=== PATIENT | male | born 1970 | race Caucasian/White ===

== ENCOUNTER 2018-01-08 06:49 | Emergency (ER) | payer BC ==
--- NOTE | 2018-01-08 07:24 | EDM.PDOC ---
ED HPI GENERAL MEDICAL PROBLEM - General Chief Complaint: Upper Extremity Injury/Pain Stated Complaint: LEFT ARM/SHOULDER INJURY Time Seen by Provider: 01/08/18 07:07 Source of Information: Reports: Patient History Limitations: Reports: No Limitations - History of Present Illness INITIAL COMMENTS - FREE TEXT/NARRATIVE: The patient states that he dropped his glasses behind his bed, and when he was reaching around to get them, around 06:00 this morning, he dislocated his left shoulder. The patient states that he has had countless dislocations of his left shoulder over the past 20 years. He underwent surgery about 7 years ago and states that he has had only one dislocation since, last summer, that he was able to self- reduced. He states that he attempted to self-reduced his shoulder this morning, without success. The patient has a history of DVT/PE, and is prescribed aqua's, but states that he has not refilled his prescription for the past month. The patient's PCP is [facility]. Left Shoulder Pain Score (Numeric/FACES): 8 - Related Data Allergies Allergy/AdvReac Type Severity Reaction Status Date / Time acetaminophen [From Percocet] Allergy Itching Verified 01/08/18 07:01 oxycodone HCl [From Percocet] Allergy Itching Verified 01/08/18 07:01 Home Meds: Home Meds Aspirin [Children's Aspirin] 2 tab PO DAILY 10/28/14 [History] Mycophenolate Mofetil [Cellcept] 750 mg PO BID 10/28/14 [History] Sirolimus [Rapamune] 2 mg PO DAILY 10/28/14 [History] Past Medical History Cardiovascular History: Reports: Blood Clots/VTE/DVT, Cardiomyopathy (viral, requiring heart transplant), High Cholesterol Respiratory History: Reports: PE (x 2) - Infectious Disease History Infectious Disease History: Reports: Other (See Below) Other Infectious Disease History: viral infection of heart in the past - Past Surgical History Cardiovascular Surgical History: Reports: Pacer (since removed), Other (See Below) (Heart transplant [address] [facility]) GI Surgical History: Reports: Cholecystectomy Musculoskeletal Surgical History: Reports: Arthroscopic Knee (left), Shoulder Surgery (left, arthroscopic), Other (See Below) (Right knee tendon repair) Social & Family History - Family History Family Medical History: Noncontributory - Tobacco Use Smoking Status *Q: Never Smoker - Alcohol Use Alcohol Use History: Yes Days Per Week of Alcohol Use: 0 Number of Drinks Per Day: 0 Total Drinks Per Week: 0 Alcohol Use Frequency: Socially - Recreational Drug Use Recreational Drug Use: No - Living Situation & Occupation Living situation: Reports: Single, Alone Occupation: Employed ([employer]) Review of Systems - Review of Systems Review Of Systems: ROS reveals no pertinent complaints other than HPI. ED EXAM, GENERAL - Physical Exam Exam: See Below Exam Limited By: No Limitations General Appearance: Alert, WD/WN, Mild Distress (Appears uncomfortable) Eye Exam: Bilateral Eye: Normal Inspection Ears: Normal External Exam, Hearing Grossly Normal Nose: Normal Inspection, No Blood Throat/Mouth: Normal Inspection, Normal Lips, Normal Voice, No Airway Compromise Head: Atraumatic, Normocephalic Neck: Normal Inspection, Full Range of Motion Respiratory/Chest: No Respiratory Distress, Lungs Clear, Normal Breath Sounds, No Accessory Muscle Use Cardiovascular: Normal Peripheral Pulses, Regular Rate, Rhythm, No Gallop, No JVD, No Murmur, No Rub Peripheral Pulses: 4+: Radial (L), Radial (R) GI/Abdominal: Normal Bowel Sounds, Soft, Non-Tender, No Organomegaly, No Distention, No Abnormal Bruit, No Mass (Male) Exam: Deferred Extremities: Normal Capillary Refill, Other (Anterior left shoulder fullness, consistent with anterior dislocation. Tender to palpation or any attempt at movement of the left humerus. Left upper extremity neurovascular status is intact.) Neurological: Alert, Oriented, Normal Cognition, No Motor/Sensory Deficits Psychiatric: Normal Affect Skin Exam: Warm, Dry, Intact, Normal Color, No Rash ED TRAUMA EXTREMITY PROCEDURES - Joint Reduction Site: Shoulder (L) Sedation: Other (Propofol per Anesthesia) Pre-Procedure NV Status: Normal Post-Procedure NV Status: Normal Technique: Traction/Counter Traction Number of Attempts: 1 Post-Reduction Imaging: Completely Reduced Joint Reduction Complications: No Course - Vital Signs Last Recorded V/S: Last Vital Signs Temp 36.8 C 01/08/18 07:36 Pulse 97 01/08/18 07:36 Resp 15 01/08/18 07:36 BP 123/87 01/08/18 07:36 Pulse Ox 100 01/08/18 07:36 - Orders/Labs/Meds Orders: Active Orders 24 hr Category Date Time Status DME for Discharge [COMM] Stat Oth 01/08/18 07:59 Ordered Meds: Medications Discontinued Medications Generic Name Dose Route Start Last Admin Trade Name Jeannie PRN Reason Stop Dose Admin Fentanyl Confirm 01/08/18 07:56 Sublimaze Administered 01/08/18 07:57 Dose 100 mcg .ROUTE .STK-MED ONE Hydromorphone HCl 0.5 mg 01/08/18 07:44 01/08/18 08:00 Dilaudid IVPUSH 01/08/18 07:45 Not Given ONETIME ONE Hydromorphone HCl Confirm 01/08/18 07:53 01/08/18 07:59 Dilaudid Administered 01/08/18 07:54 Not Given Dose 0.5 mg .ROUTE .STK-MED ONE Lactated Ringer's 1,000 mls @ 150 mls/hr 01/08/18 07:45 01/08/18 07:41 Ringers, Lactated IV 150 mls/hr ASDIRECTED HO Administration Midazolam HCl Confirm 01/08/18 07:56 Versed 1 Mg/Ml Administered 01/08/18 07:57 Dose 2 mg .ROUTE .STK-MED ONE Propofol Confirm 01/08/18 07:56 Diprivan 20 Ml Administered 01/08/18 07:57 Dose 200 mg .ROUTE .STK-MED ONE - Re-Assessments/Exams Free Text/Narrative Re-Assessment/Exam: 01/08/18 07:22 4-view radiographs of the left shoulder appear to demonstrate an anterior dislocation. No fracture identified. Evidence for prior surgery is present. Formal read per the Radiologist pending. The patient drove himself here, and states that he does not want pain medication. He states that his shoulder has been reduced without it in the past. The problem with that approach, however, is that without sedation, the muscles will be spasming and make reduction difficult. This would also increase the risk of a Hill-Sachs fracture. I've asked anesthesia to come to the ED. They could briefly sedate the patient for reduction, reducing the risk of injury. Once the patient is awake, he can then safely drove himself home. 01/08/18 07:57 The shoulder was reduced without difficulty using the traction/countertraction method, while under anesthesia. Post-reduction radiograph of the left shoulder appears to demonstrate complete reduction. No bony injury identified. Formal read per the Radiologist pending. A shoulder sling will be applied, and the patient will be discharged home. Departure - Departure Time of Disposition: 08:00 Disposition: Home, Self-Care 01 Condition: Good Clinical Impression: Recurrent dislocation, left shoulder - Discharge Information Instructions: Shoulder Dislocation Referrals: [facility] PA [Primary Care Provider] - Forms: ED Department Discharge Additional Instructions: You were seen in the emergency room after dislocating your left shoulder at home. Your shoulder was reduced in the ER under anesthesia. Continue to wear the shoulder sling for about 24 hours, then gradually increase the use of your left shoulder as tolerated. Take [id number] ibuprofen as needed for discomfort. If any other problems, please do not hesitate to return to the ER. - My Orders Last 24 Hours: My Active Orders 01/08/18 07:59 DME for Discharge [COMM] Stat - Assessment/Plan Last 24 Hours: My Active Orders 01/08/18 07:59 DME for Discharge [COMM] Stat
--- NOTE | 2018-01-08 07:36 | PCM.PREANE ---
Preanesthetic Assessment - Anesthesia/Transfusion/Family Hx Anesthesia History: Prior Anesthesia Without Reaction Family History of Anesthesia Reaction: No Transfusion History: Prior Transfusion Without Reaction - Review of Systems General: No Symptoms Pulmonary: No Symptoms Cardiovascular: No Symptoms Gastrointestinal: No Symptoms Neurological: No Symptoms, Numbness (left arm) Other: Reports: Easy Bleeding (ASA) - Physical Assessment NPO Status Date: 01/07/18 NPO Status Time: 00:00 Pulse: 97 O2 Sat by Pulse Oximetry: 100 Respiratory Rate: 15 Blood Pressure: 123/87 Temperature: 36.8 C Vital Signs: Last Vital Signs Temp 36.8 C 01/08/18 06:55 Pulse 104 H 01/08/18 06:55 Resp 17 01/08/18 06:55 BP 126/97 H 01/08/18 06:55 Pulse Ox 99 01/08/18 06:55 Height: 1.85 m Weight: 97.522 kg ASA Class: 3E Mental Status: Alert & Oriented x3 Airway Class: Mallampati = 1 Dentition: Reports: Normal Dentition Thyro-Mental Finger Breadths: 3 Mouth Opening Finger Breadths: 3 ROM/Head Extension: Full Lungs: Clear to Auscultation, Normal Respiratory Effort Cardiovascular: Regular Rate, Regular Rhythm, No Murmurs - Allergies Allergies/Adverse Reactions: Allergies Allergy/AdvReac Type Severity Reaction Status Date / Time acetaminophen [From Percocet] Allergy Itching Verified 01/08/18 07:01 oxycodone HCl [From Percocet] Allergy Itching Verified 01/08/18 07:01 - Blood Blood Available: No Product(s) Available: None - Anesthesia Plan Pre-Op Medication Ordered: None - Acknowledgements Anesthesia Type Planned: MAC Pt an Appropriate Candidate for the Planned Anesthesia: Yes Alternatives and Risks of Anesthesia Discussed w Pt/Guardian: Yes Pt/Guardian Understands and Agrees with Anesthesia Plan: Yes PreAnesthesia Questionnaire Cardiovascular History: Reports: Blood Clots/VTE/DVT, Heart Failure, High Cholesterol, [place] Other Cardiovascular History: HEART TRANSPLANT 2011 Respiratory History: Reports: PE Genitourinary History: Reports: Renal Disease Musculoskeletal History: Reports: Other (See Below) Other Musculoskeletal History: generalized muscle aches and pains----recent dose change in statins Hematologic History: Reports: Other (See Below) Other Hematologic History: BLOOD CLOTS Immunologic History: Reports: Solid Organ Transplant Other Immunologic History: pt is on immunosuppressant agents - Infectious Disease History Infectious Disease History: Reports: Other (See Below) Other Infectious Disease History: viral infection of heart in the past - Past Surgical History GI Surgical History: Reports: Cholecystectomy Musculoskeletal Surgical History: Reports: Arthroscopic Knee - SUBSTANCE USE Smoking Status *Q: Unknown Ever Smoked Days Per Week of Alcohol Use: 0 Number of Drinks Per Day: 0 Total Drinks Per Week: 0 Recreational Drug Use History: No - HOME MEDS Home Medications: Home Meds Aspirin [Children's Aspirin] 2 tab PO DAILY 10/28/14 [History] Mycophenolate Mofetil [Cellcept] 750 mg PO BID 10/28/14 [History] Sirolimus [Rapamune] 2 mg PO DAILY 10/28/14 [History]
[2018-01-08 07:37] VITALS: BP 123/87
[2018-01-08] MEDS ORDERED: HYDROmorphone 0.5 MG/0.5 ML SYRINGE IVPUSH ONE (07:44)
[2018-01-08] MEDS ORDERED: Lactated Ringers 1,000 ML IV SCH (07:45)
[2018-01-08] MEDS ORDERED: HYDROmorphone 0.5 MG/0.5 ML SYRINGE ONE (07:53)
[2018-01-08] MEDS ORDERED: Midazolam 1 MG/ML 2 ML SDV ONE (07:56)
[2018-01-08] MEDS ORDERED: Propofol 200 MG/20 ML SDV ONE (07:56)
[2018-01-08] MEDS ORDERED: fentaNYL 100 MCG/2 ML SDV ONE (07:56)
--- NOTE | 2018-01-08 08:46 | CR ---
Left shoulder: Three views of the left shoulder were obtained. Comparison: Prior left shoulder study of 10/16/10. Anterior subcoracoid dislocation is seen. Lucencies are seen within the glenoid rim compatible with prior surgery. No acute fracture or other abnormality is seen. Impression: 1. Shoulder dislocation. Evidence of prior glenoid surgery. Diagnostic code #3
--- NOTE | 2018-01-08 08:48 | CR ---
Left shoulder: Single AP view of the left shoulder was obtained. Comparison: Prior shoulder study performed earlier on the same day (6:56 AM). Previous dislocation has been reduced. Glenohumeral alignment appears within normal limits. Lucencies compatible with previous surgery again noted within the glenoid rim. No additional abnormality is seen. Impression: 1. Previous dislocation has been reduced. Diagnostic code #2
== END 2018-01-08 08:53 | disposition home or self-care (01) ==
LOC: JD.ED 06:49
DX: M24.412 Recurrent dislocation, left shoulder (principal); Z88.8 Allergy status to other drugs, medicaments and biological substances; Z79.899 Other long term (current) drug therapy; Z79.82 Long term (current) use of aspirin
CPT/HCPCS: 23655; 73020; 73030; 96360; 99152; 99284; J2250; J3010; J7120; J2704

== ENCOUNTER 2018-03-05 14:18 | Emergency (ER) | payer BC ==
[2018-03-05 14:25] VITALS: BP 148/102
[2018-03-05] MEDS ORDERED: fentaNYL 100 MCG/2 ML SDV IVPUSH ONE ×2 (14:34→14:59)
[2018-03-05] MEDS ORDERED: Sodium Chloride 0.9% 10 ML Syringe FLUSH PRN (14:34)
[2018-03-05] MEDS ORDERED: Midazolam 1 MG/ML 2 ML SDV IVPUSH ONE ×2 (14:34→14:59)
--- NOTE | 2018-03-05 14:39 | EDM.PDOC ---
ED HPI GENERAL MEDICAL PROBLEM - General Chief Complaint: Upper Extremity Injury/Pain Stated Complaint: LEFT SHOULDER INJURY Time Seen by Provider: 03/05/18 14:27 Source of Information: Reports: Patient History Limitations: Reports: No Limitations - History of Present Illness INITIAL COMMENTS - FREE TEXT/NARRATIVE: The patient presents with left shoulder dislocation. This happened just prior to arrival. He was pull starting a generator. He has a history of shoulder dislocation. He has had surgery. He denies any other injures. Onset: Sudden Duration: Minutes: Location: Reports: Upper Extremity, Left (Shoulder) Quality: Reports: Sharp Severity: Severe Improves with: Reports: None Worsens with: Reports: None Associated Symptoms: Reports: No Other Symptoms Left Shoulder Pain Score (Numeric/FACES): 6 - Related Data Allergies Allergy/AdvReac Type Severity Reaction Status Date / Time acetaminophen [From Percocet] Allergy Itching Verified 01/08/18 07:01 oxycodone HCl [From Percocet] Allergy Itching Verified 01/08/18 07:01 Home Meds: Home Meds Aspirin [Children's Aspirin] 2 tab PO DAILY 10/28/14 [History] Mycophenolate Mofetil [Cellcept] 750 mg PO BID 10/28/14 [History] Sirolimus [Rapamune] 2 mg PO DAILY 10/28/14 [History] Apixaban [Eliquis] 5 mg PO BID 03/05/18 [History] Chlorthalidone 25 mg PO DAILY 03/05/18 [History] Past Medical History Cardiovascular History: Reports: Blood Clots/VTE/DVT, Cardiomyopathy (viral, requiring heart transplant), High Cholesterol Other Cardiovascular History: HEART TRANSPLANT 2012 Respiratory History: Reports: PE (x 2) Genitourinary History: Reports: Renal Disease Musculoskeletal History: Reports: Other (See Below) Other Musculoskeletal History: generalized muscle aches and pains----recent dose change in statins Hematologic History: Reports: Other (See Below) Other Hematologic History: BLOOD CLOTS Immunologic History: Reports: Solid Organ Transplant Other Immunologic History: pt is on immunosuppressant agents - Infectious Disease History Infectious Disease History: Reports: Other (See Below) Other Infectious Disease History: viral infection of heart in the past - Past Surgical History Cardiovascular Surgical History: Reports: Pacer (since removed), Other (See Below) (Heart transplant 2012 at [facility]) GI Surgical History: Reports: Cholecystectomy Musculoskeletal Surgical History: Reports: Arthroscopic Knee (left), Shoulder Surgery (left, arthroscopic), Other (See Below) (Right knee tendon repair) Social & Family History - Family History Family Medical History: Noncontributory - Tobacco Use Smoking Status *Q: Never Smoker - Alcohol Use Days Per Week of Alcohol Use: 0 Number of Drinks Per Day: 0 Total Drinks Per Week: 0 - Recreational Drug Use Recreational Drug Use: No Drug Use in Last 12 Months: No - Living Situation & Occupation Living situation: Reports: Single, Alone Occupation: Employed ([employer]) Review of Systems - Review of Systems Review Of Systems: See Below Constitutional: Reports: No Symptoms Eyes: Reports: No Symptoms Ears: Reports: No Symptoms Nose: Reports: No Symptoms Mouth/Throat: Reports: No Symptoms Respiratory: Reports: No Symptoms Cardiovascular: Reports: No Symptoms GI/Abdominal: Reports: No Symptoms Genitourinary: Reports: No Symptoms Musculoskeletal: Reports: Shoulder Pain ED EXAM, GENERAL - Physical Exam Exam: See Below Exam Limited By: No Limitations General Appearance: Alert, No Apparent Distress Ears: Normal External Exam Nose: Normal Inspection Head: Atraumatic, Normocephalic Neck: Normal Inspection Respiratory/Chest: No Respiratory Distress, Lungs Clear, Normal Breath Sounds Cardiovascular: Regular Rate, Rhythm, No Edema, No Murmur GI/Abdominal: Soft, Non-Tender, No Organomegaly, No Mass Extremities: Other (Deformity to the left shoulder with pain upon palpation. Good sensation and pulses distally. Good sensation to the lateral deltoid.) ED TRAUMA EXTREMITY PROCEDURES - Joint Reduction Site: Shoulder (L) Sedation: Conscious Sedation Pre-Procedure NV Status: Normal Post-Procedure NV Status: Normal Technique: Traction/Counter Traction Number of Attempts: 2 Post-Reduction Imaging: Completely Reduced, No Fracture Seen Joint Reduction Complications: No Course - Vital Signs Last Recorded V/S: Last Vital Signs Temp 98 F 03/05/18 15:51 Pulse 84 03/05/18 15:51 Resp 20 03/05/18 15:51 BP 148/102 H 03/05/18 15:51 Pulse Ox 100 03/05/18 15:51 - Orders/Labs/Meds Orders: Active Orders 24 hr Category Date Time Status Peripheral IV Care [RC] . DIRECTED Care 03/05/18 14:34 Active Shoulder 1V Lt [CR] Stat Exams 03/05/18 16:13 Taken Lactated Ringers [Ringers, Lactated] 1,000 ml Med 03/05/18 15:15 Active IV ASDIRECTED Sodium Chloride 0.9% [Saline Flush] Med 03/05/18 14:34 Active 10 ml FLUSH ASDIRECTED PRN Peripheral IV Insertion Adult [OM.PC] Routine Oth 03/05/18 14:34 Ordered Medication Orders Lactated Ringer's (Ringers, Lactated) 1,000 mls @ 100 mls/hr IV ASDIRECTED HO Last Admin: 03/05/18 15:15 Dose: 100 mls/hr Sodium Chloride (Saline Flush) 10 ml FLUSH ASDIRECTED PRN PRN Reason: Keep Vein Open Last Admin: 03/05/18 14:40 Dose: 10 ml Meds: Medications Generic Name Dose Route Start Last Admin Trade Name Freq PRN Reason Stop Dose Admin Lactated Ringer's 1,000 mls @ 100 mls/hr 03/05/18 15:15 03/05/18 15:15 Ringers, Lactated IV 100 mls/hr ASDIRECTED HO Administration Sodium Chloride 10 ml 03/05/18 14:34 03/05/18 14:40 Saline Flush FLUSH 10 ml ASDIRECTED PRN Administration Keep Vein Open Discontinued Medications Generic Name Dose Route Start Last Admin Trade Name Freq PRN Reason Stop Dose Admin Fentanyl 100 mcg 03/05/18 14:34 03/05/18 14:45 Sublimaze IVPUSH 03/05/18 14:35 100 mcg ONETIME ONE Administration Fentanyl 50 mcg 03/05/18 14:59 03/05/18 15:02 Sublimaze IVPUSH 03/05/18 15:00 50 mcg ONETIME ONE Administration Fentanyl Confirm 03/05/18 15:00 03/05/18 15:08 Sublimaze Administered 03/05/18 15:01 Not Given Dose 100 mcg .ROUTE .STK-MED ONE Lactated Ringer's Confirm 03/05/18 15:08 03/05/18 15:24 Ringers, Lactated Administered 03/05/18 15:09 Not Given Dose 1,000 mls @ as directed .ROUTE .STK-MED ONE Lidocaine HCl Confirm 03/05/18 15:29 Xylocaine-Mpf 1% Administered 03/05/18 15:30 Dose 4 mls @ as directed .ROUTE .STK-MED ONE Midazolam HCl 2 mg 03/05/18 14:34 03/05/18 14:50 Versed 1 Mg/Ml IVPUSH 03/05/18 14:35 2 mg ONETIME ONE Administration Midazolam HCl 1 mg 03/05/18 14:59 03/05/18 15:04 Versed 1 Mg/Ml IVPUSH 03/05/18 15:00 1 mg ONETIME ONE Administration Midazolam HCl Confirm 03/05/18 15:00 03/05/18 15:10 Versed 1 Mg/Ml Administered 03/05/18 15:01 Not Given Dose 2 mg .ROUTE .STK-MED ONE Propofol Confirm 03/05/18 15:30 Diprivan 20 Ml Administered 03/05/18 15:31 Dose 200 mg .ROUTE .STK-MED ONE - Re-Assessments/Exams Free Text/Narrative Re-Assessment/Exam: 03/05/18 14:38 I have ordered an IV saline lock, fentanyl and versed. I will reduce the dislocation. 03/05/18 16:39 That did not work so I ordered more fentanyl and vesed and that did not work so I had anaesthesia come and sedate him. That did work and his shoulder was reduced. It did not "clunk" into place like I normally feel but it took a couple pops. I feel he needs to see an orthopedic surgeon. I will refer him to Dr Gill. Departure - Departure Time of Disposition: 16:40 Disposition: Home, Self-Care 01 Condition: Good Clinical Impression: Recurrent dislocation, left shoulder - Discharge Information Referrals: [facility] PA [Primary Care Provider] - Christopher Gill MD [Physician] - 1 Week Forms: ED Department Discharge Additional Instructions: Ice your shoulder for 15 minutes 3 times per day for 2 days. Wear your sling for comfort. Follow up with Dr Gill. Please return if you are worse. - My Orders Last 24 Hours: My Active Orders 03/05/18 14:34 Peripheral IV Care [RC] . DIRECTED Sodium Chloride 0.9% [Saline Flush] 10 ml FLUSH ASDIRECTED PRN Peripheral IV Insertion Adult [OM.PC] Routine 03/05/18 15:15 Lactated Ringers [Ringers, Lactated] 1,000 ml IV ASDIRECTED 03/05/18 16:13 Shoulder 1V Lt [CR] Stat - Assessment/Plan Last 24 Hours: My Active Orders 03/05/18 14:34 Peripheral IV Care [RC] . DIRECTED Sodium Chloride 0.9% [Saline Flush] 10 ml FLUSH ASDIRECTED PRN Peripheral IV Insertion Adult [OM.PC] Routine 03/05/18 15:15 Lactated Ringers [Ringers, Lactated] 1,000 ml IV ASDIRECTED 03/05/18 16:13 Shoulder 1V Lt [CR] Stat
[2018-03-05] MEDS ORDERED: fentaNYL 100 MCG/2 ML SDV ONE (15:00)
[2018-03-05] MEDS ORDERED: Midazolam 1 MG/ML 2 ML SDV ONE (15:00)
[2018-03-05] MEDS ORDERED: Lactated Ringers 1,000 ML ONE (15:08)
[2018-03-05] MEDS ORDERED: Lactated Ringers 1,000 ML IV SCH (15:15)
--- NOTE | 2018-03-05 15:26 | PCM.PREANE ---
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) Gastrointestinal: No Symptoms Neurological: Numbness (left arm with dislocation) Other: Reports: None (History of renal disease- 40% kidney function per patient) , Easy Bleeding, Easy Bruising (History of DVT's/on eliquis/history of PE's) - Physical Assessment NPO Status Date: 03/05/18 NPO Status Time: 13:15 Pulse: 84 O2 Sat by Pulse Oximetry: 100 Respiratory Rate: 20 Blood Pressure: 148/102 Temperature: 36.6 C Vital Signs: Last Vital Signs Temp 36.6 C 03/05/18 14:23 Pulse 84 03/05/18 14:23 Resp 20 03/05/18 14:23 BP 148/102 H 03/05/18 14:23 Pulse Ox 100 03/05/18 14:23 Height: 1.85 m Weight: 94.347 kg ASA Class: 3E Mental Status: Alert & Oriented x3 Airway Class: Mallampati = 1 Dentition: Reports: Normal Dentition, Caries Thyro-Mental Finger Breadths: 3 Mouth Opening Finger Breadths: 3 ROM/Head Extension: Full Lungs: Clear to Auscultation, Normal Respiratory Effort Cardiovascular: Regular Rate, Regular Rhythm, No Murmurs - Imaging/EKG Impressions: CXR: negative EKG: SR rate= 90, RBBB (2016) - Allergies Allergies/Adverse Reactions: Allergies Allergy/AdvReac Type Severity Reaction Status Date / Time acetaminophen [From Percocet] Allergy Itching Verified 01/08/18 07:01 oxycodone HCl [From Percocet] Allergy Itching Verified 01/08/18 07:01 - Anesthesia Plan Pre-Op Medication Ordered: None - Acknowledgements Anesthesia Type Planned: MAC Pt an Appropriate Candidate for the Planned Anesthesia: Yes Alternatives and Risks of Anesthesia Discussed w Pt/Guardian: Yes Pt/Guardian Understands and Agrees with Anesthesia Plan: Yes PreAnesthesia Questionnaire HEENT History: Reports: Impaired Vision Other HEENT History: wears eyeglasses. Cardiovascular History: Reports: Blood Clots/VTE/DVT, Cardiomyopathy (viral, requiring heart transplant), High Cholesterol Other Cardiovascular History: HEART TRANSPLANT 2012 Respiratory History: Reports: PE (x 2) Genitourinary History: Reports: Renal Disease Musculoskeletal History: Reports: Other (See Below) Other Musculoskeletal History: generalized muscle aches and pains----recent dose change in statins Hematologic History: Reports: Other (See Below) Other Hematologic History: BLOOD CLOTS Immunologic History: Reports: Solid Organ Transplant Other Immunologic History: pt is on immunosuppressant agents Dermatologic History: Reports: Eczema - Infectious Disease History Infectious Disease History: Reports: Other (See Below) Other Infectious Disease History: viral infection of heart in the past - Past Surgical History Cardiovascular Surgical History: Reports: Pacer (since removed), Other (See Below) (Heart transplant 2012 at [facility]) GI Surgical History: Reports: Cholecystectomy Musculoskeletal Surgical History: Reports: Arthroscopic Knee (left), Shoulder Surgery (left, arthroscopic), Other (See Below) (Right knee tendon repair) - SUBSTANCE USE Smoking Status *Q: Never Smoker Second Hand Smoke Exposure: No Days Per Week of Alcohol Use: 0 Number of Drinks Per Day: 0 Total Drinks Per Week: 0 Recreational Drug Use History: No - HOME MEDS Home Medications: Home Meds Aspirin [Children's Aspirin] 2 tab PO DAILY 10/28/14 [History] Mycophenolate Mofetil [Cellcept] 750 mg PO BID 10/28/14 [History] Sirolimus [Rapamune] 2 mg PO DAILY 10/28/14 [History] Apixaban [Eliquis] 5 mg PO BID 03/05/18 [History] Chlorthalidone 25 mg PO DAILY 03/05/18 [History] - CURRENT (IN HOUSE) MEDS Current Meds: Current Medications Lactated Ringer's (Ringers, Lactated) 1,000 mls @ 100 mls/hr IV ASDIRECTED HO Sodium Chloride (Saline Flush) 10 ml FLUSH ASDIRECTED PRN PRN Reason: Keep Vein Open Discontinued Medications Fentanyl (Sublimaze) 100 mcg IVPUSH ONETIME ONE Stop: 03/05/18 14:35 Last Admin: 03/05/18 14:45 Dose: 100 mcg Fentanyl (Sublimaze) 50 mcg IVPUSH ONETIME ONE Stop: 03/05/18 15:00 Last Admin: 03/05/18 15:02 Dose: 50 mcg Fentanyl (Sublimaze) Confirm Administered Dose 100 mcg .ROUTE .STK-MED ONE Stop: 03/05/18 15:01 Last Admin: 03/05/18 15:08 Dose: Not Given Lactated Ringer's (Ringers, Lactated) Confirm Administered Dose 1,000 mls @ as directed .ROUTE .STK-MED ONE Stop: 03/05/18 15:09 Midazolam HCl (Versed 1 Mg/Ml) 2 mg IVPUSH ONETIME ONE Stop: 03/05/18 14:35 Last Admin: 03/05/18 14:50 Dose: 2 mg Midazolam HCl (Versed 1 Mg/Ml) 1 mg IVPUSH ONETIME ONE Stop: 03/05/18 15:00 Last Admin: 03/05/18 15:04 Dose: 1 mg Midazolam HCl (Versed 1 Mg/Ml) Confirm Administered Dose 2 mg .ROUTE .STK-MED ONE Stop: 03/05/18 15:01 Last Admin: 03/05/18 15:10 Dose: Not Given
[2018-03-05] MEDS ORDERED: Lidocaine 1% 4 ML ONE (15:29)
[2018-03-05] MEDS ORDERED: Propofol 200 MG/20 ML SDV ONE (15:30)
--- NOTE | 2018-03-05 16:20 | PCM48HPAN ---
Post Anesthesia Note - EVALUATION WITHIN 48HRS OF ANESTHETIC Vital Signs in Normal Range: Yes Patient Participated in Evaluation: Yes Respiratory Function Stable: Yes Airway Patent: Yes Cardiovascular Function Stable: Yes Hydration Status Stable: Yes Pain Control Satisfactory: Yes Nausea and Vomiting Control Satisfactory: Yes Mental Status Recovered: Yes
--- NOTE | 2018-03-06 09:02 | CR ---
Left shoulder: Single AP view of the left shoulder was obtained. Small lucencies are noted within the anterior glenoid compatible with previous surgery. Glenohumeral joint is otherwise unremarkable. Acromioclavicular joint is within normal limits. No acute fracture or other bony abnormality is seen. Impression: 1. Previous left shoulder surgery. 2. Nothing acute is identified on AP left shoulder study. Diagnostic code #2
== END 2018-03-05 17:02 | disposition home or self-care (01) ==
LOC: JD.ED 14:18
DX: M24.412 Recurrent dislocation, left shoulder (principal); E78.00 Pure hypercholesterolemia, unspecified; Z88.6 Allergy status to analgesic agent; Z88.5 Allergy status to narcotic agent; Z79.82 Long term (current) use of aspirin; Z79.899 Other long term (current) drug therapy
CPT/HCPCS: 23655; 73020; 96374; 96375; 99284; J2250; J3010; J7050; J7120; 01620; J2001; J2704